=== PATIENT | female | born 1980 | race Caucasian/White ===

== ENCOUNTER 2022-10-23 13:54 | Outpatient (CLI) | payer OTHER, SELFPAY ==
--- NOTE | 2022-10-23 14:00 | CRLHL7_ITS ---
For Patients: As a result of the Century Cures Act, medical imaging exams and procedure reports are released immediately into your electronic medical record. You may view this report before your referring provider. If you have questions, please contact your health care provider. BILATERAL SCREENING MAMMOGRAM WITH COMPUTER-AIDED DETECTION AND TOMOSYNTHESIS TECHNIQUE: CC and MLO views were obtained. These mammographic images have been obtained using full-field digital technique. These mammographic images were interpreted with the benefit of computer-aided detection. Breast Tomosynthesis was used in this interpretation. COMPARISON FILM: 09/26/21. FINDINGS: The breasts are heterogeneously dense, which may obscure small masses IMPRESSION: There is no radiographic evidence for malignancy. ASSESSMENT: BI-RADS Category 1: Negative RECOMMENDATION: Routine screening mammogram in 1 year. A lay language report of this examination will be provided to the patient. Bert Caban M.D. Diagnostic Radiologist [email or web address] MARGE/[email or web address] / be/Dictated by: Bert Caban MD @ 10/24/2022 1:09:00 PM (Electronically Signed)
--- NOTE | 2022-10-23 16:30 | CRLHL7_ITS ---
For Patients: As a result of the Century Cures Act, medical imaging exams and procedure reports are released immediately into your electronic medical record. You may view this report before your referring provider. If you have questions, please contact your health care provider. INDICATION: Neck mass. TECHNIQUE: CT of the neck soft tissues performed with IV contrast. Contrast: 94 cc Isovue 370. COMPARISON: None available at this institution. FINDINGS: The nasopharynx, oropharynx and hypopharynx appear unremarkable. The supraglottic, glottic and infraglottic spaces are preserved. The parotid and submandibular glands appear unremarkable. The thyroid gland is normal. No lymphadenopathy identified. The visualized major vascular structures appear intact. The visualized intracranial components appear grossly intact. Visualized orbits and contents appear unremarkable. The paranasal sinuses are clear as visualized. Lung apices are clear. IMPRESSION: No evident mass or lymphadenopathy within the neck. Please note that all CT scans at this facility use dose modulation, iterative reconstruction, and/or weight-based dosing when appropriate to reduce radiation dose to as low as reasonably achievable. Dictated by Amos Sawyer MD @ 10/25/2022 11:10:09 AM (Electronically Signed)
== END 2022-10-23 13:55 | disposition home or self-care (01) ==
PROVIDERS: PCP Internal Medicine; Referring Provider Internal Medicine; Visit Provider Internal Medicine
DX: Z12.31 Encounter for screening mammogram for malignant neoplasm of breast (principal); R92.2 Inconclusive mammogram; R22.1 Localized swelling, mass and lump, neck
CPT/HCPCS: 70491; 77063; 77067; 80053; 84443; Q9967

== ENCOUNTER 2022-10-25 16:27 | Outpatient (CLI) | payer OTHER, SELFPAY | END 2022-10-25 16:28 | disposition home or self-care (01) | PROVIDERS: PCP Internal Medicine; Visit Provider Internal Medicine | DX: R53.83 Other fatigue (principal); R53.81 Other malaise; R22.1 Localized swelling, mass and lump, neck | CPT/HCPCS: 85651; 86140; 86618 ==

== ENCOUNTER 2022-10-29 15:19 | Outpatient (CLI) | payer OTHER, SELFPAY | END 2022-10-29 15:20 | disposition home or self-care (01) | LOC: NFLDREF 11-02 04:06 | PROVIDERS: PCP Internal Medicine; Referring Provider Internal Medicine; Visit Provider Internal Medicine | DX: R53.81 Other malaise (principal); R53.83 Other fatigue | CPT/HCPCS: 86618 ==

== ENCOUNTER 2022-11-02 09:28 | Outpatient (CLI) | payer OTHER, SELFPAY ==
--- NOTE | 2022-11-02 09:15 | CRLHL7_ITS ---
For Patients: As a result of the Century Cures Act, medical imaging exams and procedure reports are released immediately into your electronic medical record. You may view this report before your referring provider. If you have questions, please contact your health care provider. INDICATION: palpable right neck mass COMPARISON: CT 10/23/2022 TECHNIQUE: Solorio scale and color Doppler images were acquired of the thyroid gland. FINDINGS: The thyroid gland demonstrates mildly heterogeneous echogenicity and has a smooth outer contour. The right lobe measures 5.3 x 1.2 x 1.0 cm and the left lobe measures 4.2 x 1.1 x 1.5 cm in size. The isthmus measures 2 millimeters. Hypoechoic nodule lower pole right thyroid lobe measuring 5 millimeters which does not require follow-up. Tiny colloid cysts are present bilaterally. The color Doppler images demonstrate normal vascularity. There is no evidence of cervical lymphadenopathy or parathyroid mass. IMPRESSION: No suspicious thyroid nodule. Dictated by Bert Caban MD @ 11/02/2022 11:08:46 AM (Electronically Signed)
== END 2022-11-02 09:29 | disposition home or self-care (01) ==
LOC: US 09:29
PROVIDERS: PCP Internal Medicine; Visit Provider Internal Medicine
DX: R22.1 Localized swelling, mass and lump, neck (principal)
CPT/HCPCS: 76536

== ENCOUNTER 2023-04-03 08:55 | Outpatient (CLI) | payer OTHER, SELFPAY | END 2023-04-03 08:56 | disposition home or self-care (01) | PROVIDERS: PCP Internal Medicine; Visit Provider Physician Assistant | DX: Z01.419 Encounter for gynecological examination (general) (routine) without abnormal findings (principal); R53.83 Other fatigue; Z13.6 Encounter for screening for cardiovascular disorders; Z13.1 Encounter for screening for diabetes mellitus | CPT/HCPCS: 80061; 82947 ==

== ENCOUNTER 2023-10-03 11:00 | Outpatient (RCR) | payer OTHER, SELFPAY | END 2024-01-31 23:59 | disposition home or self-care (01) | PROVIDERS: PCP Internal Medicine; Visit Provider Physician Assistant | DX: N81.9 Female genital prolapse, unspecified (principal); M62.08 Separation of muscle (nontraumatic), other site; M79.672 Pain in left foot; R29.898 Other symptoms and signs involving the musculoskeletal system; Z51.89 Encounter for other specified aftercare | CPT/HCPCS: 97110; 97140; 97162 ==

== ENCOUNTER 2023-11-07 09:33 | Outpatient (CLI) | payer OTHER, SELFPAY ==
--- NOTE | 2023-11-07 09:45 | MM_ITS ---
Patient: WILL NIX Facility:?[facility] Patient ID:?[id number] Site Patient ID:?[id number]. Site :?1980 Study:?XRay-Breast Bilateral 3D W/CAD-11/07/2023 12:12:24 PM Ordering Physician:CANDY Final Report: BILATERAL DIGITAL SCREENING MAMMOGRAM WITH TOMOSYNTHESIS AND COMPUTER-AIDED DETECTION CLINICAL HISTORY: Routine screening exam. COMPARISON: 10/23/2022, 09/26/2021. TECHNIQUE: Digital mammogram in CC and MLO projections including computer-aided detection (CAD). Tomosynthesis utilized. BREAST COMPOSITION: The breasts are heterogeneously dense, which may obscure small masses. FINDINGS: RIGHT Breast: Focal asymmetric density upper outer quadrant 6 cm from the nipple. LEFT Breast: No suspicious findings. IMPRESSION: RIGHT breast asymmetry/mass. RECOMMENDATIONS: Additional mammographic views of the RIGHT breast including 3D spot compression CC/MLO. RIGHT breast ultrasound may also be required. BI-RADS Category 0: Incomplete: Need Additional Imaging Evaluation and/or Prior Mammograms for Comparison The [facility] will contact the patient for follow-up. A lay language report of this examination will be provided to the patient. Dictated by Bert Caban MD @ 11/13/2023 12:40:09 PM zonia/Dictated by: Bert Caban MD @ 11/13/2023 12:40:00 PM Signed by:?Bert Caban MD @11/13/2023 1:29:08 PM (Electronic Signature)
== END 2023-11-07 09:34 | disposition home or self-care (01) ==
LOC: MAMMO 09:34
PROVIDERS: PCP Internal Medicine; Visit Provider Internal Medicine
DX: Z12.31 Encounter for screening mammogram for malignant neoplasm of breast (principal); N63.10 Unspecified lump in the right breast, unspecified quadrant; R92.2 Inconclusive mammogram
CPT/HCPCS: 77063; 77067

== ENCOUNTER 2023-11-22 10:07 | Outpatient (CLI) | payer OTHER, SELFPAY ==
--- OUTSIDE RECORDS SUMMARY | 2023-11-22 10:10 | XMS_ITS | Clinical Summary ---
Author Name Unknown Organization [facility] Address [place], [place] [address] Care Team Providers Care Mail Processing Clerk Name Role Phone Katelynn Guerra MD Primary Care Provider [phone] Allergies No known active allergies Medications Medication Sig Dispensed Refills Start Date End Date Status multivitamin (MVI) tablet Take 1 Tablet by mouth once daily. 0 04/27/2021 Active Cnitv-2-MMT-EPA-Fish Oil 1,000 mg (120 mg-180 mg) cap Take 1 Capsule (1,000 mg) by mouth. 0 04/27/2021 Active benzonatate (Tessalon Perles) 100 mg capsuleIndications:C hest congestion Take 1 Capsule (100 mg) by mouth 3 times daily if needed for Cough. 30 Capsule 05/16/2021 Active albuterol (PROVENTIL) 0.083 % neb solutionIndications: Bronchitis with bronchospasm Inhale 3 mL (2.5 mg) via a nebulizer every 6 hours if needed. 180 mL 05/16/2021 Active guaiFENesin (MUCINEX) 600 mg Extended-Release tablet Take 1 Tablet (600 mg) by mouth 2 times daily. 0 05/25/2021 Active pseudoephedrine (SUDAFED) 30 mg tablet Take 1 Tablet (30 mg) by mouth every 6 hours if needed for Nasal Congestion. 20 Tablet 05/25/2021 Active zinc 50 mg tablet Take 1 Tablet (50 mg) by mouth once daily. 0 05/25/2021 Active Active Problems Problem Noted Date Diagnosed Date H/O LEEP Overview: Does have history of abnormal Paps before she had her children. Status post LEEP. No abnormals for some time. 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 Immunizations Name Administration Dates Next Due COVID-19 vaccine ([employer] 30mcg/0.3mL) PF, MDV 12/07/2020,11/16/2020 Influenza, IIV4 04/27/2021,06/02/2020,05/02/2018 Influenza, IIV4 (=>6mos) MDV 05/12/2019 Tdap 03/28/2018 Family History Medical History Relation Name Comments Heart failure Father Kidney disease Father Cancer Maternal Grandfather Heart Disease Maternal Grandfather Heart attack Maternal Grandfather Hypertension Maternal Grandmother Kidney cancer Paternal Grandfather Relation Name Status Comments Father Maternal Grandfather Maternal Grandmother Mother Alive Paternal Grandfather Social History Tobacco Use Types Packs/Day Years Used Date Smoking Tobacco: Never Smokeless Tobacco: Never Tobacco Cessation:Counseling Given: Yes Alcohol Use Standard Drinks/Week Comments Yes 0 (1 standard drink = 0.6 oz pur e alcohol) 2-3 drinks per week PHQ-2 Answer Date Recorded PHQ-2 TOTAL SCORE 0 04/27/2021 Social Connections Answer Date Recorded Frequency of Communication with Friends and Fami ly Not on file 08/12/2021 Financial Resource Strain Answer Date R ecorded Difficulty of Paying Living Expenses Not on file 08/12/2021 Difficulty of Paying Living Expenses Not on file 08/12/2021 Sex and Gender Information Value Date Recorded Sex Assigned at Not on file Gender Identity Not on file Sexual Orientation Not on file Obstetrics History Para Term AB IAB SAB Ectopic Multiple Livin g Live Births 6 4 4 2 2 4 4 Date Outcome GA Total Labor Labor/2nd/3rd Weight Sex Delivery Anes PTL Pretty A1 A5 Name Cl in Term Term Term Term SAB SAB Last Filed Vital Signs Vital Sign Reading Time Taken Comments Blood Pressure 105/73 05/25/2021 11:29 AM CDT Pulse 79 05/25/2021 11:29 AM CDT Temperature 36.8 ??C (98.3 ??F) 05/25/2021 11:29 AM C DT Respiratory Rate - - Oxygen Saturation 97% 05/25/2021 11:29 AM CDT Inhaled Oxygen Concentration - - Weight 92.3 kg (203 lb 6.4 oz) 05/16/2021 8:17 A M CDT Height 176 cm (5' 9.29) 05/16/2021 8:17 AM CDT Body Mass Index 29.79 05/16/2021 8:17 AM CDT Plan of Treatment Health Maintenance Due Date Last Done Comments HIV for age 15-65 1997 Hepatitis C screening for age 18-79 2000 Depression screening for age 12+ 04/27/2022 04/27/2021 BMI (ht and wt on same day) for age 18+ 05/16/2022 05/16/2021, 04/27/2021, 07/15/2019, Additional history exists COVID-19 vaccine series ( season) 2023 12/07/2020, 11/16/2020 Influenza for age 9-49 04/12/2024 1, 06/02/2020, 05/12/2019, Additional history exists Pap test for age 21-65 04/03/2026 3, 04/03/2023, 04/27/2021, Additional history exists Tetanus booster 03/28/2028 03/28/2018 Tdap Completed 03/28/2018 Pneumococcal series for age 6-64 Aged Out No longer eligible based on patient's age to complete this topic Procedures Procedure Name Priority Date/Time Associated Diagnosis Comments HPV THIN PREP Routine 04/03/2023 9:00 AM CDT from Last 3 Months or Most Recently Relevant to Health Maintenance Results * HPV HIGH RISK (04/03/2023 9:00 AM CDT) TYPE 16 Negative Negative 04/10/2023 11:09 AM CDT [facility] TYPE 18 Negative Negative 04/10/2023 11:09 AM CDT [facility] OTHER HIGH RISK TYPES Negative Negative 04/10/2023 11:09 AM CDT [facility] Other (Cervical) 04/03/2023 9:00 AM CDT 04/04/2023 4:57 PM CDT Narrative [facility] - 04/10/2023 11:09 AM CDT HPV types 16, 18, 31, 33, 35, 39, 45, 51, 52, 56, 58, 59, 66 and 68 DNA were undetectable or below the pre-set threshold. Methodology: Lydia Kasie 4800 HPV Test November Donovan [facility] [facility] [address] [place] [address], from Last 3 Months or Most Recently Relevant to Health Maintenance Care Teams Mail Processing Clerk Relationship Specialty Start Date End Date Katelynn Guerra MD [address] [place] [address] PCP - General Family Practice 04/27/21
--- NOTE | 2023-11-22 10:15 | US_ITS ---
Patient: GOSIA NIX Facility:?[facility] Patient ID:?[id number] Site Patient ID:?[id number]. Site :?1980 Study:?US-Breast Right RT BREAST LMT / DR. SIMON TO READ-11/22/2023 10:48:30 AM Ordering Physician:?DEMARCUS SIMON M.D. Final Report: RIGHT BREAST ULTRASOUND CLINICAL HISTORY: RIGHT breast asymmetric density. COMPARISON: 11/07/2023. TECHNIQUE: Real-time ultrasound imaging of RIGHT breast with imaging documentation. FINDINGS: Patient declined diagnostic mammography. Targeted diagnostic RIGHT breast ultrasound performed only. At 10 o`clock 6 cm from the nipple there is an island of dense fibroglandular tissue. No suspicious mass. No fluid collection. IMPRESSION: Normal dense fibroglandular tissue RIGHT breast 10 o`clock 6 cm from the nipple. RECOMMENDATIONS: Annual BILATERAL screening mammography. BI-RADS Category 2: Benign Dictated by Bert Simon MD @ 11/22/2023 11:06:39 AM jj/Dictated by: Bert Simon MD @ 11/22/2023 11:06:00 AM Signed by:?Bert Simon MD @11/22/2023 12:12:14 PM (Electronic Signature)
== END 2023-11-22 10:08 | disposition home or self-care (01) ==
LOC: MAMMO 10:08
PROVIDERS: PCP Internal Medicine; Visit Provider Internal Medicine
DX: N63.10 Unspecified lump in the right breast, unspecified quadrant (principal); R92.8 Other abnormal and inconclusive findings on diagnostic imaging of breast
CPT/HCPCS: 76642

== ENCOUNTER 2024-05-18 10:38 | Outpatient (CLI) | payer OTHER, SELFPAY ==
--- OUTSIDE RECORDS SUMMARY | 2024-05-18 10:41 | XMS_ITS | Clinical Summary ---
Author Organization [employer] Address [place], [place] [address] Care Team Providers Care Business Development Name Role Phone Brionna, Maria Bonnie Primary Care Provider [phone] Allergies Active Allergy Reactions Criticality Noted Date Comments Mold *Unknown 02/28/2024 Monosodium Glutamate Headache Low 10/10/2021 Medications Medication Sig Dispensed Refills Start Date End Date Status Xldfj-2-YBZ-EPA-Fish Oil 1,000 mg (120 mg-180 mg) cap Take 1 Capsule (1,000 mg) by mouth. 0 04/27/2021 Active cholecalciferol, vitD3,/vit K2 (vitamin D3-vitamin K2) 125-90 mcg cap Take 5,000 Int'l Units/day by mouth two times daily with meals. Active Magnesium Glycinate 100 mg tab Take by mouth. 2 daily Active polysaccharide iron complex 125 mg iron/5 mL liqd Take by mouth. Active ascorbic acid, vitamin C, (Vitamin C) 1,000 mg tablet Take 1,000 mg by mouth once daily. Active Active Problems Problem Noted Date Diagnosed Date History of abnormal cervical Pap smear Anxiety 02/28/2024 History of migraine 02/28/2024 History of repair of ACL 02/28/2024 Hx of iron deficiency anemia 02/28/2024 H/O LEEP Overview (05/15/2021): Does have history of abnormal Paps before she had her children. Status post LEEP. No abnormals for some time. 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 Encounters Date Type Department Care Team Description 04/14/2024 9:55 AM CDT Office Visit [facility] [address] [place] [address] Harleen Romero PA Leg Pain/problem (Right) 04/14/2024 Travel 03/05/2024 Orders Only [facility] Scanner 1 scan: (1-Ord) INCOMING RECORDS-US, [facility], 03/05/2024 03/05/2024 Orders Only [facility] Scanner 1 scan: (1-Ord) INCOMING RECORDS-CT, [facility], 03/05/2024 03/05/2024 Orders Only [facility] Scanner 1 scan: ([facility]-Ord[facility] 03/05/2024 Orders Only [facility] Scanner 1 scan: (1-Ord) [facility] 03/05/2024 03/05/2024 Orders Only [facility] Scanner 1 scan: (1-Ord) INCOMING RECORDS-US, [facility], 03/05/2024 03/05/2024 Orders Only [facility] Scanner 1 scan: (1-Ord) INCOMING RECORDS-EKG, [facility], 03/05/2024 03/05/2024 Orders Only [facility] Scanner 1 scan: (1-Ord) INCOMING RECORDS-CT, [facility], 03/05/2024 03/05/2024 Orders Only [facility] Scanner 1 scan: (1-Ord) INCOMING RECORDS-US, [facility], 03/05/2024 03/05/2024 Orders Only [facility] Scanner 1 scan: (1-Ord) [facility], 03/05/2024 02/28/2024 8:20 AM CDT Office Visit [facility] [address] [place] [address] Maria Staton, DO Physical 02/28/2024 Travel 02/21/2024 9:50 AM CDT Office Visit [facility] [address] [place] [address] Harleen Romero PA Dizziness (started 1 day ago. Rested on the couch, dizziness got worse. Took BP at home. felt out of body/145/81/150/96) 02/21/2024 Travel from Last 3 Months Immunizations Name Administration Dates Next Due COVID-19 vaccine ([employer] NTech 30mcg/0.3mL) PF, MDV 12/07/2020,11/16/2020 Influenza, IIV4 [...] Answer Date Recorded PHQ-2 TOTAL SCORE 0 02/28/2024 Social Connections Answer Date Recorded Frequency of Communication with Friends and Fami ly Not on file 02/21/2024 Financial Resource Strain Answer Date R ecorded [...] Outcome GA Total Labor Labor/2nd/3rd Weight Sex Type Anes PTL Pretty A1 A5 Name Clin Term Term Term Term SAB SAB Last Filed Vital Signs Vital Sign Reading Time Taken Comments Blood Pressure 125/81 04/14/2024 10:05 AM CDT Pulse 88 04/14/2024 10:05 AM CDT Temperature 36.5 ??C (97.7 ??F) 02/21/2024 1 2:24 PM CDT Respiratory Rate - - Oxygen Saturation 100% 04/14/2024 10: 05 AM CDT Inhaled Oxygen Concentration - - Weight 87.4 kg (192 lb 11.2 oz) 024 10:05 AM CDT Height 178.6 cm (5' 10.32) 02/28/2024 8:40 AM C DT Body Mass Index 27.4 02/28/2024 8:40 AM CDT Plan of Treatment Upcoming Encounters Date Type Department Care Team (Late st Contact Info) Description 05/20/2024 10:40 AM CDT Telemedicine [facility] [address] [place] [phone] O'Day, Alfred Kinney MD [address] [place], [place] [phone] Health Maintenance Due Date Last Done Comments HIV for age 15-65 1997 Hepatitis C screening for age 18-79 2000 COVID-19 vaccine series (2023- season) 2024 12/07/2020, 11/16/2020 Influenza for age 9-49 04/12/2024 1, 06/02/2020, 05/12/2019, Additional history exists BMI (ht and wt on same day) for age 18+ 02/27/2025 02/28/2024, 05/16/2021, 04/27/2021, Additional history exists Depression screening for age 12+ 02/27/2025 02/28/2024, 04/27/2021 Pap test for age 21-65 04/03/2026 3, 04/03/2023, 04/27/2021, Additional history exists Tetanus booster 03/28/2028 03/28/2018 Tdap Completed 03/28/2018 Pneumococcal series for age 6-64 Aged Out No longer eligible based on patient's age to complete this topic Procedures Procedure Name Priority Date/Time Associated Diagnosis Comments SCAN CORRESP-EKG RESULTS 03/05/2024 12:00 AM CDT SCAN CORRESP-LABORATORY RESULTS 03/05/2024 12:00 AM CDT SCAN CORRESP-LABORATORY RESULTS 03/05/2024 12:00 AM CDT SCAN CORRESP-IMAGING 03/05/2024 12:00 AM CDT SCAN CORRESP-IMAGING 03/05/2024 12:00 AM CDT SCAN CORRESP-IMAGING 03/05/2024 12:00 AM CDT SCAN CORRESP-IMAGING 03/05/2024 12:00 AM CDT SCAN CORRESP-IMAGING 03/05/2024 12:00 AM CDT SCAN CORRESP-IMAGING 03/05/2024 12:00 AM CDT CBC WITH AUTO DIFFERENTIAL Routine 02/21/2024 10:42 AM CDT Lightheaded FERRITIN Routine 02/21/2024 10:42 AM CDT Lightheaded VITAMIN D 25 (DEFICIENCY) Routine 02/21/2024 10:42 AM CDT Lightheaded TSH WITH REFLEX Routine 02/21/2024 10:42 AM CDT Lightheaded BASIC METABOLIC PANEL STAT 02/21/2024 10:42 AM CDT Lightheaded CBC WITH AUTO DIFFERENTIAL Routine 02/21/2024 10:42 AM CDT Lightheaded HPV HIGH RISK Routine 04/03/2023 9:00 AM CDT from Last 3 Months or Most Recently Relevant to Health Maintenance Results * SCAN CORRESP-LABORATORY RESULTS (03/05/2024 12:00 AM CDT) Only the most recent of2 resultswithin the time period is included. Scanner OTHER * SCAN CORRESP-EKG RESULTS (03/05/2024 12:00 AM CDT) Scanner OTHER * SCAN CORRESP-IMAGING (03/05/2024 12:00 AM CDT) Only the most recent of6 resultswithin the time period is included. Anatomical Region Laterality Modality Other Scanner OTHER * CBC WITH AUTO DIFFERENTIAL (02/21/2024 10:42 AM CDT) WHITE BLOOD COUNT 4.6 4.5 - 11.0 thou/cu mm 02/21/2024 10:46 AM CDT [facility] RED BLOOD COUNT 4.18 4.00 - 5.20 mil/cu mm 02/21/2024 10:46 AM CDT [facility] HEMOGLOBIN 12.8 12.0 - 16.0 g/dL 02/21/2024 10:46 AM CDT [facility] HEMATOCRIT 38.3 33.0 - 51.0 % 02/21/2024 10:46 AM CDT [facility] MCV 92 80 - 100 fL 02/21/2024 10:46 AM CDT [facility] MCH 30.6 26.0 - 34.0 pg 02/21/2024 10:46 AM CDT [facility] MCHC 33.4 32.0 - 36.0 g/dL 02/21/2024 10:46 AM CDT [facility] RDW 13.0 11.5 - 15.5 % 02/21/2024 10:46 AM CDT [facility] PLATELET COUNT 308 140 - 440 thou/cu mm 02/21/2024 10:46 AM CDT [facility] MPV 8.8 6.5 - 11.0 fL 02/21/2024 10:46 AM CDT [facility] % NEUT 58.2 % 02/21/2024 10:46 AM CDT [facility] % LYMPH 32.8 % 02/21/2024 10:46 AM CDT [facility] % MONO 7.3 % 02/21/2024 10:46 AM CDT [facility] % EOS 1.5 % 02/21/2024 10:46 AM CDT [facility] % BASO 0.2 % 02/21/2024 10:46 AM CDT [facility] ABSOLUTE NEUTROPHILS 2.7 1.7 - 7.0 thou/cu mm 02/21/2024 10:46 AM CDT [facility] ABSOLUTE LYMPHOCYTES 1.5 0.9 - 2.9 thou/cu mm 02/21/2024 10:46 AM CDT [facility] ABSOLUTE MONOCYTES 0.3 <0.9 thou/cu mm 02/21/2024 10:46 AM CDT [facility] ABSOLUTE EOSINOPHILS 0.1 <0.5 thou/cu mm 02/21/2024 10:46 AM CDT [facility] ABSOLUTE BASOPHILS 0.0 <0.3 thou/cu mm 02/21/2024 10:46 AM CDT [facility] Blood BLOOD SPECIMEN / Unknown IV Start / Unknown 02/21/2024 10:42 AM CDT 02/21/2024 10:42 AM CDT Harleen DEAN HEMATOLOGY [facility] [address] [place] [address], * TSH WITH REFLEX (02/21/2024 10:42 AM CDT) TSH 1.95 0.27 - 4.20 uIU/mL 02/21/2024 12:58 PM CDT [facility] Blood BLOOD SPECIMEN / Unknown IV Start / Unknown 02/21/2024 10:42 AM CDT 02/21/2024 10:42 AM CDT [facility] - 02/21/2024 12:58 PM CDT In Adults, TSH values between 5.00 and 10.00 uIU/ml do not necessarily indicate the presence of Hypothyroidism. Correlation with clinical findings such as presence of goiter and/or Thyroperoxidase (TPO) Antibody may be helpful. For more information please refer to HERIBERTO 2004; 291: 228-238. Harleen DEAN CHEMISTRY Performing Organization Address City/[facility]/ZIP Co de Phone Number [facility] [address] [place] [address] * VITAMIN D 25 (DEFICIENCY) (02/21/2024 10:42 AM CDT) VITAMIN D TOTAL 28.7 20.0 - 80.0 ng/mL 02/22/2024 3:33 PM CDT [facility] Blood BLOOD SPECIMEN / Unknown IV Start / Unknown 02/21/2024 10:42 AM CDT 02/21/2024 10:42 AM CDT Narrative [facility] - 02/22/2024 3:33 PM CDT ? Vitamin D Status Deficiency: ? <20 ng/mL Insufficiency: ?20-29 ng/mL Sufficiency: ?30-80 ng/mL Possible Toxicity: ??>80 ng/mL Based on [place] [employer] recommendations Biotin supplements may cause clinically significant interference for this test assay. ??If interference is suspected, it is strongly recommended that biotin is discontinued for at least one week prior to retesting. Harleen DEAN SEND OUTS Performing Organization Address [facility] Co de Phone Number [facility] [address] [place] [address], * FERRITIN (02/21/2024 10:42 AM CDT) FERRITIN 28.1 15.0 - 150.0 ng/mL 02/22/2024 3:33 PM CDT [facility] Blood BLOOD SPECIMEN / Unknown IV Start / Unknown 02/21/2024 10:42 AM CDT 02/21/2024 10:42 AM CDT Harleen DEAN CHEMISTRY Performing Organization Address City/[facility]/ZIP Co de Phone Number [facility] [address] [place] [address], * BASIC METABOLIC PANEL (02/21/2024 10:42 AM CDT) SODIUM 136 136 - 145 mmol/L 02/21/2024 12:58 PM [facility] POTASSIUM 4.7 3.5 - 5.1 mmol/L 02/21/2024 12:58 PM [facility] CHLORIDE 105 98 - 107 mmol/L 02/21/2024 12:58 PM [facility] CO2,TOTAL 25 22 - 29 mmol/L 02/21/2024 12:58 PM [facility] ANION GAP 6 5 - 18 02/21/2024 12:58 PM [facility] GLUCOSE 97 70 - 99 mg/dL 02/21/2024 12:58 PM [facility] CALCIUM 9.4 8.6 - 10.0 mg/dL 02/21/2024 12:58 PM [facility] BUN 9 6 - 20 mg/dL 02/21/2024 12:58 PM [facility] CREATININE 0.77 0.50 - 0.90 mg/dL 02/21/2024 12:58 PM [facility] BUN/CREAT RATIO 12 10 - 20 12:58 PM [facility] eGFR >90 >90 mL/min/1.7 3m2 02/21/2024 12:58 PM [facility] Comment:As of 2021, eG FR is calculated by the CKD-EPI creatinine equation without race adjustment. ??eGFR can be influenced by muscle mass, exercise, and diet. ??The reported eGFR is an estimation only and is only applicable if the renal function is stable. Blood BLOOD SPECIMEN / Unknown IV Start / Unknown 02/21/2024 10:42 AM CDT 02/21/2024 10:42 AM CDT Harleen DEAN CHEMISTRY [facility] [address] [place] [address] * HPV HIGH RISK (04/03/2023 9:00 AM CDT) TYPE 16 Negative Negative 04/10/2023 11:09 AM CDT [facility] TR[facility] LABORAT[facility] TYPE 18 Negative Negative 04/10/2023 11:09 AM CDT [facility] LAB[facility] OTHER HIGH RISK TYPES Negative Negative 04/10/2023 11:09 AM CDT [facility] Other (Cervical) 04/03/2023 9:00 AM CDT 04/04/2023 4:57 PM CDT Narrative [facility] - 04/10/2023 11:09 AM CDT HPV types 16, 18, 31, 33, 35, 39, 45, 51, 52, 56, 58, 59, 66 and 68 DNA were undetectable or below the pre-set threshold. Methodology: Lydia Kasie 4800 HPV Test November Donovan [employer]TER [employer] [facility] [address] [place] [address], from Last 3 Months or Most Recently Relevant to Health Maintenance Care Teams Business Development Relationship Specialty Start Date End Date Maria Staton [place] [address] PCP - General Family Practice 04/14/24
[2024-05-20 04:05] LABS: HPV Source Cervical; HPV, High Risk by TMA Not Detected
[2024-06-02 14:20] LABS: Pap Test Reviewed by Path Done
== END 2024-05-18 10:39 | disposition home or self-care (01) ==
PROVIDERS: PCP Internal Medicine; Visit Provider Obstetrics & Gynecology
DX: Z12.4 Encounter for screening for malignant neoplasm of cervix (principal); N87.0 Mild cervical dysplasia
CPT/HCPCS: 87624; 87625; 88141; 88142

== ENCOUNTER 2025-05-25 13:54 | Outpatient (CLI) | payer OTHER, SELFPAY | END 2025-05-25 13:55 | disposition home or self-care (01) | LOC: FRMREF 13:55 | PROVIDERS: PCP Internal Medicine; Visit Provider Physician Assistant Medical | DX: R06.02 Shortness of breath (principal) | CPT/HCPCS: 80053; 82728; 84443; 85379 ==

== ENCOUNTER 2025-05-26 09:42 | Emergency (ER) | payer OTHER, SELFPAY ==
--- OUTSIDE RECORDS SUMMARY | 2025-05-26 09:48 | XMS_ITS | Clinical Summary ---
Author Organization [employer] [facility] Address [address] [place] [address] Care Team Providers Care Core Blower Operator Name Role Phone Maria Staton DO Primary Care Provider [phone] Queta Ervin MD Unavailable [phone] Allergies Active Allergy Reactions Criticality Noted Date Comments Mold *Unknown 02/28/2024 Monosodium Glutamate Headache Low 10/10/2021 Medications Alndq-1-[id number]-EPA -Fish Oil 1,000 mg (120 mg-180 mg) cap Take 1 Capsule (1,000 mg) by mouth. 0 04/27/2021 Active cholecalciferol , vitD3,/vit K2 (vitamin D3-vitamin K2) 125-90 mcg [...] Active Problems Problem Noted Date Diagnosed Date Iron deficiency 07/15/2024 History of abnormal cervical Pap smear Anxiety [...] Encounters Date Type Department Care Team Description 04/23/2025 Travel from Last 3 Months Immunizations Immunization Administration Dates Next Due COVID-19 vaccine ([employer] NTech 30mcg/0.3mL) PF, MDV 12/07/2020,11/16/2020 Influenza, IIV4 [...] Paying Living Expenses Not on file 08/12/2021 Comments No Sex and Gender Information Value Date Recorded Sex Assigned at Not on file Legal Sex Female 10:03 AM CDT Gender Identity Not on file Sexual Orientation [...] Sign Reading Time Taken Comments Blood Pressure 117/75 09/09/2024 10:15 AM SEED TESTER Pulse 87 09/09/2024 10:15 AM SEED TESTER Temperature 36.3 C (97.3 F) 09/09/2024 10:15 AM SEED TESTER Respiratory Rate 16 09/09/2024 10:15 AM SEED TESTER Oxygen Saturation 100% 09/09/2024 10:15 AM SEED TESTER Inhaled Oxygen Concentration - - Weight 90.8 kg (200 lb 3.2 oz) 09/09/2024 10:15 AM SEED TESTER Height 178.6 cm (5' 10.32) 02/28/2024 8:40 AM C DT Body Mass Index 28.47 02/28/2024 8:40 AM CDT Plan of Treatment Health Maintenance Due Date Last Done Comments HIV for age 15-65 1997 Hepatitis C screening for age 18-79 2000 Hepatitis B series for 19+ (1 of 3 - 19+ 3-dose series) 2001 HPV series for age 9-45 (1 - 3-dose SCDM series) 2009 BMI (ht and wt on same day) for age 18+ 02/27/2025 02/28/2024, 05/16/2021, 04/27/2021, Additional history exists Depression screening for age 12+ 02/27/2025 02/28/2024, 04/27/2021 COVID-19 vaccine series (2024- season) 2025 12/07/2020, 11/16/2020 Influenza Vaccine (#1) 2025 , 06/02/2020, 05/12/2019, Additional history exists Pap test for age 21-65 04/03/2026 3, 04/03/2023, 04/27/2021, Additional history exists Tetanus booster 03/28/2028 03/28/2018 RSV vaccine for adults or (1 - 1-dose 75+ series) 2057 Pneumococcal series for age 6-49 Aged Out No longer eligible based on patient's age to complete this topic Procedures Procedure Name Priority Date/Time Associated Diagnosis Comments HPV HIGH RISK Routine 04/03/2023 9:00 AM CDT from Last 3 Months or Most Recently Relevant to Health Maintenance Results * HPV HIGH RISK (04/03/2023 9:00 AM CDT) TYPE 16 Negative Negative 04/10/2023 11:09 AM CDT [facility] TYPE 18 Negative Negative 04/10/2023 11:09 AM CDT [facility] LAB[facility] OTHER HIGH RISK TYPES Negative Negative 04/10/2023 11:09 AM CDT [facility] Other (Cervical) 04/03/2023 9:00 AM CDT 04/04/2023 4:57 PM CDT Narrative [facility] - 04/10/2023 11:09 AM CDT HPV types 16, 18, 31, 33, 35, 39, 45, 51, 52, 56, 58, 59, 66 and 68 DNA were undetectable or below the pre-set threshold. Methodology: Lydia Kasie 4800 HPV Test november Donovan [employer] Final Resu lt [facility] [address] [place] [address], from Last 3 Months or Most Recently Relevant to Health Maintenance Insurance [facility] [place] [id number] [facility] Care Teams Core Blower Operator Relationship Specialty Start Date End Date Maria Staton DO [address] [place] [address] PCP - General Family Practice 04/14/24 Queta Ervin MD [address] [place] [address] [place] [address] Oncology 07/03/24
[2025-05-26 09:55] VITALS: BP 136/78; PULSE 98; RESP 18; TEMP 36.6; O2SAT 100
--- NOTE | 2025-05-26 10:18 | CRLHL7_ITS ---
For Patients: As a result of the Century Cures Act, medical imaging exams and procedure reports are released immediately into your electronic medical record. You may view this report before your referring provider. If you have questions, please contact your health care provider. INDICATION: Shortness of breath, elevated D-dimer. TECHNIQUE: CT chest PE was acquired with 100 cc Omnipaque 350 IV contrast. COMPARISON: None. FINDINGS: Heart and vasculature: Contrast opacification of the pulmonary arterial tree is adequate. No sign of pulmonary embolism. Heart size is normal. Thoracic aorta and pulmonary artery are normal in caliber. Lungs and pleura: No suspicious nodules or infiltrates. No pleural effusions, pleural thickening, or pneumothorax. Lymph nodes/mediastinum: No mediastinal, hilar, or axillary adenopathy. Chest wall: No masses. Upper abdomen: No acute or significant findings. Bones: Unremarkable for age. IMPRESSION: No pulmonary embolism. No acute findings in the chest. Please note that all CT scans at this facility use dose modulation, iterative reconstruction, and/or weight-based dosing when appropriate to reduce radiation dose to as low as reasonably achievable. Dictated by Riccardo Anderson MD @ 05/26/2025 11:49:11 AM (Electronically Signed)
--- NOTE | 2025-05-26 10:18 | CRLHL7_ITS ---
For Patients: As a result of the Cures Act, medical imaging exams and procedure reports are released immediately into your electronic medical record. You may view this report before your referring provider. If you have questions, please contact your health care provider. Indication: Bilateral calf pain. Right leg heaviness. Family history of clots. Technique: Grayscale, grayscale compression, color Doppler, spectral Doppler and augmentation technique was utilized for evaluating the bilateral lower extremity venous system Comparison: None Findings: The following structures were studied bilaterally and there was no evidence of venous thrombosis within the structures: Common femoral vein, greater saphenous vein, profunda vein, femoral vein, popliteal vein, peroneal vein and posterior tibial vein. Impression: No evidence of venous thrombosis in either lower extremity. Dictated by Adriel Rodriguez MD @ 05/26/2025 11:12:08 AM (Electronically Signed)
--- NOTE | 2025-05-26 10:55 | ED.GENADULT ---
HPI - General Adult General Date Seen: 05/26/25 Chief complaint: Extremity Pain/Injury, Lower Stated complaint: High d-dimer, R leg heavy, headache Time Seen by Provider: 05/26/25 09:52 Source: patient Mode of arrival: ambulatory Limitations: no limitations History of Present Illness HPI narrative: Patient is a 44-year-old female presenting to the emergency department for chest pain, right leg heaviness, bilateral calf cramping. Patient says she flew back from floor the on Saturday. States it was a 4 hour flight. When she went to get her back she felt some tightness in her chest and this pain in her chest this continued until she went to a clinic yesterday were lab work was done. She is mostly get outpatient CT scan today but overnight developed heaviness in her right leg and a headache. D-dimer from yesterday was elevated 0.58. She states her chest pain has improved but the leg heaviness is new. Has had some calf camping for the past few days but feels like the cramping has also improved. She describes very mild chest pain at this time. States it is about 80% better than it was yesterday. Her mother has had blood clot and DVTs. She states her mother was checked for multiple clotting disorders and everything came back negative. No family history of clotting disorders. The patient has never had any blood clots. Is not any blood thinners. Denies lightheadedness, dizziness, weakness, numbness, fevers, chills, abdominal pain. Is also having a headache. States it feels like her entire head hurts. Does have some intermittent right blurry vision. She states that is not new for her and she will give it when she gets headaches. Does states typically when she is having the blurry vision in her right eye it is from headache on the right side in the to not have the full head headache that she is currently having. No other concerns noted. Related Data Home Medications ?Medication ?Instructions ?Recorded ?Confirmed multivitamin (Multiple Vitamins 1 tab PO QAM 08/30/22 05/25/25 tablet) cholecalciferol (vitamin D3) 125 125 mcg PO QDAY 05/18/24 05/25/25 mcg (5,000 unit) capsule polysaccharide iron complex 150 mg 150 mg PO QDAY 05/18/24 05/25/25 iron capsule (Ferrex) vitamin K2 90 mcg/0.5 mL oral drops mcg PO 05/18/24 05/25/25 soybean, fermented PO 05/26/25 Allergies Allergy/AdvReac Type Severity Reaction Status Date / Time monosodium glutamate Allergy Unknown Verified 05/26/25 11:20 Review of Systems Status of ROS: Reports: 10 or more systems reviewed and unremarkable except as noted in History and below [facility] Medical History Neck mass ?R22.1 - Localized swelling, mass and lump, neck (ICD-10) Prolapse of female pelvic organs ?N81.9 - Female genital prolapse, unspecified (ICD-10) Fatigue ?R53.83 - Other fatigue (ICD-10) Diastasis recti ?M62.08 - Separation of muscle (nontraumatic), other site (ICD-10) Foot pain, left ?M79.672 - Pain in left foot (ICD-10) Brain fog ?R41.89 - Other symptoms and signs involving cognitive functions and awareness (ICD-10) Inclusion cyst of vulva ?N90.7 - Vulvar cyst (ICD-10) Fracture of toe of left foot ?S92.912A - Unspecified fracture of left toe(s), initial encounter for closed fracture (ICD-10) Tinnitus ?H93.19 - Tinnitus, unspecified ear (ICD-10) History of migraine ?Z86.69 - Personal history of other diseases of the nervous system and sense organs (ICD-10) History of iron deficiency anemia ?Z86.2 - Personal history of diseases of the blood and blood-forming organs and certain disorders involving the immune mechanism (ICD-10) 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) ?Z86.19 - Personal history of other infectious and parasitic diseases (ICD-10) History of abnormal cervical Papanicolaou smear ?Z87.42 - Personal history of other diseases of the female genital tract (ICD-10) Surgical History History of repair of anterior cruciate ligament (1998) ?Z98.890 - Other specified postprocedural states (ICD-10) History of loop electrical excision procedure (LEEP) (2005) ?Z98.890 - Other specified postprocedural states (ICD-10) History of dilation and curettage (2006) ?Z98.890 - Other specified postprocedural states (ICD-10) Family History Maternal Grandmother Colon cancer Father Heart disease Kidney disease Paternal Grandfather Kidney disease Bone cancer Mother Asthma Social History Narrative: , 4 children, owns business [employer] Non-smoker Social drinker 4/week Smoking Status: Never smoker Exam Narrative: Exam Narrative: Const: Well-nourished, Well-developed, in mild distress Eyes: PERRL, no conjunctival injection, and symmetrical lids HENT: Atraumatic external nose and ears. Moist mucous membranes. Neck: Symmetric, trachea midline, No thyromegaly. CVS: RRR, No murmurs or gallops. Peripheral pulses 2+ and equal in all extremities RESP: Unlabored respiratory effort. Clear to auscultation bilaterally. GI: Nontender/Nondistended, No rebound or guarding. MSK:Extremities w/o deformity, Normal Active ROM Skin: Warm, Dry. No rashes or lesions. Neuro: Normal Muscle tone, No focal neurological deficits. Psych: Awake, Alert, & Oriented x3. Appropriate mood and affect. Const: Vital Signs, click to edit/add: Vital Signs - 24 hr 05/26/25 09:55 Temperature 97.9 F Pulse Rate [Right Pulse Oximeter] 98 Respiratory Rate 18 Blood Pressure [Ri ght Upper Arm] 136/78 Pulse Oximetry 100 Course Vital Signs Vital signs: Initial Vital Signs Temperature 97.9 F 05/26/25 09:55 Temperature Source Temporal Artery Scan 05/26/25 09:55 Pulse Rate 98 05/26/25 09:55 Respiratory Rate 18 05/26/25 09:55 Blood Pressure 136/78 05/26/25 09:55 Blood Pressure Mean 97 05/26/25 09:55 Blood Pressure Position Sitting 05/26/25 09:55 Pulse Oximetry 100 05/26/25 09:55 Vital Signs Temperature 97.9 F 05/26/25 09:55 Pulse Rate 98 05/26/25 09:55 Respiratory Rate 18 05/26/25 09:55 Blood Pressure 136/78 05/26/25 09:55 Pulse Oximetry 100 05/26/25 09:55 Temperature 97.9 F 05/26/25 09:55 Pulse Rate 98 05/26/25 09:55 Respiratory Rate 18 05/26/25 09:55 Blood Pressure 136/78 05/26/25 09:55 Pulse Oximetry 100 05/26/25 09:55 Medical Decision Making MDM Narrative Medical decision making narrative: Patient is a 44-year-old female presenting for chest pain, right leg heaviness. The differential diagnosis of chest pain is broad and includes common etiologies such as musculoskeletal strain, GERD, pneumonia, etc. More serious etiologies considered include PE, coronary artery disease, pneumothorax, aortic dissection, aortic aneurysm. With her history I do have high clinical suspicion for PE. CTA of the chest will be ordered. This will also look for pneumonia or pneumothorax. EKG and troponin ordered to look for signs of cardiac abnormalities. I have very low concern for dissection or aortic aneurysm concern her otherwise stable vital signs. While she is having heaviness in the right leg she did have cramping in both legs and again the history I will do a bilateral venous ultrasound of her lower extremities. Will also order CBC, BMP, viral swabs. She is having a headache now as she does describe this headache as different than her previous headaches will do a CT scan. Patient's lab work shows no acute concerning abnormalities. Her sodium is slightly low I 133 but this is unlikely to be causing her symptoms. EKG interpreted by myself and troponin showed no concerning abnormalities. Considering 9th the symptoms I do not believe repeat troponin is necessary. Patient's imaging reviewed by myself and the radiologist also showed no acute concerning abnormalities. At this time a not know what exactly is causing his symptoms by do believe she is safe for discharge. Emergent issues have been ruled out. She did speak to me about her chronic of low ferritin asked about an iron transfusion. I explained that we do not have a medical reason to do that in the emergency department and if she needs 1 will need to be outpatient. Lab Data Labs: Lab Results 05/26/25 05/26/25 Range/Units 10:19 11:05 WBC 6.07 (4.50-11.00) K/uL RBC 4.10 (4.00-5.20) m/uL Hgb 12.3 (12.0-16.0) gm/dL Hct 37.3 (33.0-51.0) % MCV 91 (80-100) fL MCH 30 (26-34) pg MCHC 33 (32-36) gm/dL RDW Coeff of Geoffrey 12.5 (11.5-15.5) % Plt Count 307 (140-440) K/uL Neut % (Auto) 75.9 H (42.0-72.0) % Lymph % (Auto) 18.3 L (20-44) % Boyle % (Auto) 5.1 (0.0-11.0) % Eos % (Auto) 0.5 (0.0-7.0) % Baso % (Auto) 0.2 (0.0-3.0) % Neut # (Auto) 4.60 (1.7-7.0) K/uL Lymph # (Auto) 1.10 (0.90-2.90) K/uL Boyle # (Auto) 0.30 (0.00-0.90) K/UL Eos # (Auto) 0.03 (0.00-0.50) K/uL Baso # (Auto) 0.01 (0.00-0.30) K/uL Abs Immat Gran (auto) 0.00 (0.00-0.30) K/uL Imm/Tot Granulo (auto) 0.0 % Sodium 133 L (135-149) mmol/L Potassium 4.0 (3.6-5.1) mmol/L Chloride 100 (96-114) mmol/L Carbon Dioxide 26 (20-32) mmol/L Anion Gap 7 (7-15) mEq/L BUN 6 (5-24) mg/dL Creatinine 0.7 (0.5-1.5) mg/dL Estimated Creat Clear 109.41 Estimated GFR 111 ml/min Glucose 100 (60-115) mg/dL Calcium 9.5 (8.4-10.6) mg/dL SARS-CoV-2 (PCR) Negative SARS-CoV-2 (Negative) Influenza Type A (PCR) Negative PCR FLU A (Negative) Influenza Type B (PCR) Negative PCR FLU B (Negative) RSV (PCR) Negative PCR RSV (Negative) POC Troponin I 0.00 L (0.01-0.04) ng/ml Imaging Data CT scan - head: Attestation: I have reviewed the pertinent imaging results. Radiologist's impression: No acute intracranial abnormality. Please note that all CT scans at this facility use dose modulation, iterative reconstruction, and/or weight-based dosing when appropriate to reduce radiation dose to as low as reasonably achievable. Dictated by Lisa Gomez MD @ 05/26/2025 11:47:37 AM CTA chest: Attestation: I have reviewed the pertinent imaging results. Radiologist's impression: No pulmonary embolism. No acute findings in the chest. Please note that all CT scans at this facility use dose modulation, iterative reconstruction, and/or weight-based dosing when appropriate to reduce radiation dose to as low as reasonably achievable. Dictated by Riccardo Anderson MD @ 05/26/2025 11:49:11 AM Venous US: Attestation: I have reviewed the pertinent imaging results. Radiologist's impression: No evidence of venous thrombosis in either lower extremity. Dictated by Adriel Rodriguez MD @ 05/26/2025 11:12:08 AM ECG Data Attestation: I personally reviewed and interpreted this ECG as follows: Prior ECG tracings: not available for review Interpretation: Normal sinus rhythm with a rate of 75 beats per minute, normal intervals, normal axis, no ST or T-wave abnormalities. Discharge Plan Discharge Clinical Impression: Atypical chest pain, Leg pain, right Patient Disposition: Home, Self-Care Condition: Stable Instructions: Noncardiac Chest Pain (ED) Additional Instructions: I do not find any emergent issues that would be causing your symptoms. If they do persist you can follow-up with the primary care provider. If you are looking to get an infusion for your low ferritin this when he to be done outpatient. Prescriptions: No Action multivitamin [Multiple Vitamins] Tablet 1 tab PO QAM polysaccharide iron complex [Ferrex 150] 150 mg iron capsule 150 mg PO QDAY cholecalciferol (vitamin D3) 125 mcg (5,000 unit) capsule 125 mcg PO QDAY vitamin K2 90 mcg/0.5 mL drops PO soybean, fermented [Nattokinase] PO Follow Up/Referrals: Saritha Day MD [Primary Care Provider, Internal Medicine] Stand Alone Forms: MyHealth Info Instructions
--- NOTE | 2025-05-26 11:05 | CRLHL7_ITS ---
For Patients: As a result of the Century Cures Act, medical imaging exams and procedure reports are released immediately into your electronic medical record. You may view this report before your referring provider. If you have questions, please contact your health care provider. INDICATION: Headache TECHNIQUE: CT head without contrast. COMPARISON: None. FINDINGS: CSF spaces: Within normal limits for age. Brain parenchyma and extra-axial spaces: Evaluation is partially degraded by streak artifact. Within this limitation, the zeng-white differentiation is maintained. No sign of mass, hemorrhage, or midline shift. No extra-axial fluid collection. Bilateral basal ganglia mineralization. Skull base and calvarium: The visualized paranasal sinuses and mastoid air cells demonstrate no acute or significant findings. The visualized orbits are grossly unremarkable. No skull fractures. IMPRESSION: No acute intracranial abnormality. Please note that all CT scans at this facility use dose modulation, iterative reconstruction, and/or weight-based dosing when appropriate to reduce radiation dose to as low as reasonably achievable. Dictated by Lisa Gomez MD @ 05/26/2025 11:47:37 AM (Electronically Signed)
[2025-05-26 11:20] LABS: Hematocrit* 37.3 % (33.0-51.0); Hemoglobin* 12.3 gm/dL (12.0-16.0); Immature Granulocytes Abs Auto 0.00 K/uL (0.00-0.30); Immature Granulocytes Pct Auto 0.0 %; Mean Corpuscular HGB Conc 33 gm/dL (32-36); Mean Corpuscular Hemoglobin 30 pg (26-34); Mean Corpuscular Volume 91 fL (80-100); RDW Coefficient of Variation % 12.5 % (11.5-15.5); Red Blood Count* 4.10 m/uL (4.00-5.20); White Blood Count* 6.07 K/uL (4.50-11.00)
[2025-05-26 11:22] LABS: Lymphocytes Absolute Auto 1.10 K/uL (0.90-2.90); Slide Review Reflex No
[2025-05-26 11:33] LABS: Troponin, Point-of-Care* 0.00 ng/ml (0.01-0.04)
[2025-05-26 11:40] LABS: Chloride* 100 mmol/L (96-114)
[2025-05-26 11:41] LABS: Potassium* 4.0 mmol/L (3.6-5.1); Sodium* 133 mmol/L (135-149)
[2025-05-26 11:43] LABS: Blood Urea Nitrogen* 6 mg/dL (5-24); Creatinine* 0.7 mg/dL (0.5-1.5); Est. Creatinine Clearance* 109.41; Estimated Glomerular Filt Rate 111 ml/min
[2025-05-26 11:44] LABS: Anion Gap 7 mEq/L (7-15); Calcium* 9.5 mg/dL (8.4-10.6); Carbon Dioxide* 26 mmol/L (20-32); Glucose* 100 mg/dL (60-115)
[2025-05-26 12:02] LABS: PCR FLU A Negative PCR FLU A (Negative); PCR FLU B Negative PCR FLU B (Negative); PCR RSV Negative PCR RSV (Negative); SARS PCR* Negative SARS-CoV-2 (Negative)
== END 2025-05-26 12:23 | disposition home or self-care (01) ==
PROVIDERS: Emergency Provider Student in an Organized Health Care Education/Training Program; PCP Internal Medicine
DX: R07.9 Chest pain, unspecified (principal); M79.661 Pain in right lower leg
CPT/HCPCS: 36415; 70450; 71275; 80048; 84484; 85025; 87631; 93005; 93970; 99284; 99285; Q9967